=== PATIENT | male | born 1960 | race African-American/Black ===

== ENCOUNTER 2018-07-14 08:01 | Inpatient (IN) | payer OTHER ==
[~2018-07-14 08:01] MED LIST: Buffered Lidocaine 1% SYRIN* 1 ML/SYRINGE INTRADERM ONE; Dexamethasone IV* 4 MG/ML 1 ML (4 MG) IV SLOW PU ONE; DiMENhydriNATE IV* 50 MG/ML VIAL IV PUSH PRN; Famotidine IV* 10 MG/ML 2 ML (20 mg) IV ONE; HYDROcodone/ACETAMIN 5-325 MG* 1 TAB PO PRN; Lactated Ringers 1000 ML Bag* 1,000 ML IV SCH; Naloxone* 0.4 MG/ML 1 ML VIAL IV PRN; fentaNYL* 50 MCG/ML 2 ML VIAL (100 MCG VIAL) IV PRN; oxyCODONE/Acetamin 5/325 MG* TAB PO PRN
[2018-07-14] MEDS ORDERED: Famotidine IV* 10 MG/ML 2 ML (20 mg) ONE (08:40)
[2018-07-14] MEDS ORDERED: Dexamethasone IV* 4 MG/ML 1 ML (4 MG) ONE (08:40)
[2018-07-14] MEDS ORDERED: ceFAZolin 2 GM PREMIX in ORs 2 GM/50 ML BAG IVPB ONE (08:40)
[2018-07-14] MEDS ORDERED: fentaNYL* 50 MCG/ML 2 ML VIAL (100 MCG VIAL) ONE (08:44)
[2018-07-14] MEDS ORDERED: Midazolam* 1 MG/ML 5 ML VIAL (5 MG) ONE (08:44)
[2018-07-14] MEDS ORDERED: Lidocaine 2% PF * 5 ML VIAL ONE (08:45)
[2018-07-14] MEDS ORDERED: Succinylcholine* 20 MG/ML 10 ML VIAL ONE (08:45)
[2018-07-14] MEDS ORDERED: Propofol* 10 MG/ML 20 ML BTL ONE (08:45)
[2018-07-14] MEDS ORDERED: Lidocain 1% EPI 1:100,000 * 30 ML MDV ONE (09:47)
[2018-07-14] MEDS ORDERED: Bacitracin IV* 50,000 UNITS INJ ONE (09:48)
[2018-07-14] MEDS ORDERED: Thrombin 5,000 UNITS* 1 APPLIC KIT - topical use - TOPICAL ONE (09:48)
[2018-07-14] MEDS ORDERED: Phenylephrine IV* 40 MCG/ML 10 ML SYRINGE ONE (10:57)
[2018-07-14] MEDS ORDERED: Ondansetron INJ* 2 MG/ML VIAL ONE (11:12)
[2018-07-14] MEDS ORDERED: Magnesium Hydroxide LIQ* 30 ML UDC PO PRN (11:22)
[2018-07-14] MEDS ORDERED: Ondansetron INJ* 2 MG/ML VIAL IV PRN (11:22)
[2018-07-14] MEDS ORDERED: Lactated Ringers 1000 ML Bag* 1,000 ML IV SCH (12:00)
[2018-07-14] MEDS ORDERED: HYDROcodone/ACETAMIN 5-325 MG* 1 TAB ONE (13:04)
[2018-07-14] MEDS ORDERED: Cyclobenzaprine TAB* 10 MG PO PRN (14:24)
[2018-07-14] MEDS: HYDROcodone/ACETAMIN 5-325 MG* 1 TAB PO PRN ×2 (14:33→18:33)
[2018-07-14] MEDS ORDERED: Acetaminophen TAB* 325 MG PO PRN (14:37)
[2018-07-14] MEDS: Amitriptyline TAB* 50 MG PO SCH (21:04)
[2018-07-15] MEDS: HYDROcodone/ACETAMIN 5-325 MG* 1 TAB PO PRN ×4 (00:49→20:50)
--- NOTE | 2018-07-15 07:55 | PN ---
Progress Note - Progress Note Date of Service: 07/15/18 SOAP: Subjective: [S/p lumbar discectomy L4-5 right, POD #1. Reports persistent RLE numbness post-op. Complains of increased back pain Has not been up out of bed much Eating and drinking well] Objective: [ Vital Signs: Temp Pulse Resp BP Pulse Ox 97.9 F 80 20 141/76 97 07/15/18 04:12 07/15/18 04:12 07/15/18 04:12 07/15/18 04:12 07/15/18 05:18 General: Alert and recumbent in bed Neuro: Motor and sensory intact ] Assessment: [Pt requires further monitoring for activity and pain management] Plan: [1. Admit to inpatient 2. Continue pain management 3. PT evaluation]
[2018-07-15] MEDS: Docusate CAP* 100 MG PO PRN ×2 (08:05→20:50)
--- NOTE | 2018-07-15 10:56 | OP ---
DATE OF OPERATION: 07/15/18 - ROOM #351 DATE OF : 62 PRIMARY SURGEON: Dr. Yogesh Pitts. [employer] PLAYER: LOULOU Veronica. ANESTHESIA: General. PRE-OP DIAGNOSIS: Herniated nucleus pulposus at L4-5 on the right POST-OP DIAGNOSIS: Herniated nucleus pulposus at L4-5 on the right OPERATIVE PROCEDURE: Lumbar microdiskectomy, L4-5 on the right with microdissection. DESCRIPTION OF PROCEDURE: After satisfactory general anesthesia was obtained, the patient was placed on the operating table in the prone position with the chest supported on the Tez frame and the back slightly flexed. The lumbar region was then clipped, prepped and draped in a sterile manner for lumbar laminectomy, and a skin incision outlined from L4 to L5. This incision was infiltrated with 1% Xylocaine with epinephrine, after which it was turned down sharply to the level of the lumbar fascia. The fascia was divided along the spinous processes of L4 and L5 and the paraspinal musculature stripped away from these posterior elements using the periosteal elevator and monopolar cautery. An intraoperative x-ray was obtained, verifying proper interspace localization, after which a partial hemilaminectomy was carried out by removing the inferior aspect of the L4 lamina and medial aspect of the facet complex with a combination of the Midas Eduin drill and Kerrison rongeurs. This was carried superiorly until the attachment of ligamentum flavum was taken down. The ligamentum flavum was then removed with the Kerrison as well. Utilizing microdissection, epidural venous structures were coagulated and divided. Projecting beneath the L5 nerve root was noted to be a subcapsular disk herniation. An opening was made in the posterior longitudinal ligament and multiple fragments of disk removed from the interspace. At the conclusion of the decompression, the L5 nerve root was noted to be free in its course. After assuring adequate hemostasis, the wound was thoroughly irrigated, after which the fascia was reapproximated with 0 Vicryl suture. The subcutaneous tissue was closed with 3-0 Vicryl suture and the skin closed with skin clips. The estimated blood loss was less than 50 cc and the final sponge, padding, and needle counts were correct. The patient was taken to the recovery room, extubated, and in stable condition. [id number]/[facility] #: [id number] [facility]
[2018-07-15] MEDS: Amitriptyline TAB* 50 MG PO SCH (20:50)
[2018-07-16] MEDS: HYDROcodone/ACETAMIN 5-325 MG* 1 TAB PO PRN ×3 (06:25→16:12)
--- NOTE | 2018-07-16 08:24 | PN ---
Progress Note - Progress Note Date of Service: 07/16/18 SOAP: Subjective: [S/p lumbar discectomy L4-5 right, POD #2. Complains of incisional back pain, requires minimal pain medication RLE numbness/tingling persistent Worked with PT yesterday, performed stairs well Denies nausea, headache Eating and drinking well Ambulating with walker] Objective: [ Vital Signs: Temp Pulse Resp BP Pulse Ox 97.6 F 69 20 141/84 98 07/16/18 05:17 07/16/18 05:17 07/16/18 06:25 07/16/18 05:17 07/16/18 05:17 General: Alert and recumbent in bed, NAD Neuro: Motor and sensory intact, mild RLE decreased sensation] Assessment: [Satisfactory post op] Plan: [1. Discharge to [facility] today 2. Discharge instructions discussed 3. Will need walker 4. Follow up in office on 07/27/18]
[2018-07-16 17:13] VITALS: BP 150/72
== END 2018-07-16 17:57 | DRG 310 ==
LOC: OR 08:01 → EEVIPCON 08:01 → SSU 11:22 → OBSVTOIN 07-15 07:58
PROVIDERS: ADMIT Neurological Surgery; ATTEND Neurological Surgery
PROC: 0SB20ZZ Excision of Lumbar Vertebral Disc, Open Approach (ICD-10-PCS; principal; 2018-07-15)
PROC: 01NB0ZZ Release Lumbar Nerve, Open Approach (ICD-10-PCS; 2018-07-15)
DX: M51.16 Intervertebral disc disorders with radiculopathy, lumbar region (principal); D86.9 Sarcoidosis, unspecified; G89.29 Other chronic pain; Z88.2 Allergy status to sulfonamides; Z88.8 Allergy status to other drugs, medicaments and biological substances; Z82.49 Family history of ischemic heart disease and other diseases of the circulatory system
CPT/HCPCS: 72100; A9270-GY; J0330; J0690; J1100; J2250; J2405; J2704; J3010